=== PATIENT | male | born 1985 | race Caucasian/White ===

== ENCOUNTER 2016-05-09 12:15 | Emergency (ER) | payer OTHER ==
[~2016-05-09] VITALS: Ht 175.3 cm; Wt 86.3 kg
[~2016-05-09 12:15] MED LIST: AMOX875T PO; AMPH30CA3 PO; FEXO1TAB46 PO
[2016-05-09 12:18] VITALS: TEMP 37.1; Ht 175.3 cm; Wt 86.3 kg
[2016-05-09] MEDS ORDERED: IBUPROFEN 600 MG TAB PO STA (13:07)
[2016-05-09] MEDS ORDERED: ACETAMINOPHEN 325 MG TAB PO STA (13:07)
[2016-05-09] MEDS ORDERED: SODIUM CHLORIDE 0.9% 1000ML 1,000 ML IV STA (13:07)
[2016-05-09] MEDS ORDERED: ONDANSETRON INJ 2 MG/ML 2 ML VIAL IV STA (13:07)
[2016-05-09] MEDS ORDERED: OMEP20CA9 PO (13:38)
[2016-05-09 14:16] LABS: BUN/CREATININE RATIO 8.7 (10-20); CALCIUM 9.2 mg/dl (8.5-10.1); CREATININE 1.1 mg/dl (0.60-1.40); POTASSIUM 3.9 mmol/L (3.5-5.1)
[2016-05-09 14:52] LABS: BASO % 0.4 %; BASO ABS # 0.03 K/uL (0-0.2); COMPLETE YES; EOS % 0.1 %; HEMATOCRIT 42.9 % (42-52); IG% 0.1 %; LYMPH ABS # 0.91 K/uL (1.2-3.4); MEAN CELL VOLUME 84.8 fL (80-100); MEAN CORPUSCULAR HEMOGLOBIN 30.4 pg (25-34); MEAN CORPUSCULAR HGB CONC 35.9 g/dl (32-36); MEAN PLATELET VOLUME 11.8 fL (7.4-10.4); MONO % 11.1 %; NEUT % 77.3 %; PLATELET COUNT 110 K/uL (130-400); RED BLOOD COUNT 5.06 M/uL (4.7-6.1); WHITE BLOOD COUNT 8.27 K/uL (4.8-10.8)
[2016-05-09] MEDS ORDERED: ONDA4TAB10 SL (15:18)
[2016-05-09 15:28] VITALS: BP 118/71; PULSE 83; O2SAT 94
--- NOTE | 2016-05-09 17:21 | EMERGENCY ROOM VISIT NOTE ---
History Report prepared by Osmany: Craig Avelar Under the Supervision of: Dr. Anibal Walsh M.D. First contact with patient: 13:00 Chief Complaint: FLU LIKE SX Stated Complaint: FLU History of Present Illness The patient is a 31 year old male who presents to the Emergency Room with complaints of persistent flu-like symptoms that started 2 days ago. He complains of a sore throat, body aches, tiredness, difficulty breathing, and fevers. The patient also has a cough, which brings up green/yellow mucous. He did vomit this morning and had an episode of diarrhea yesterday. The patient denies leg swelling. His step-son was sick earlier this week with similar symptoms. The patient did not get a flu shot this season. He took Tylenol yesterday, but not today. Source of History: patient Onset: 2 days ago Position: other (global - flu-like symptoms) Timing: other (persistent) Associated Symptoms: + SOB, + cough, + diarrhea, + fatigue, + fevers, + sorethroat, + vomiting Note: Associated symptoms: Body aches. Denies leg swelling. Review of Systems See HPI for pertinent positives & negatives. A total of 10 systems reviewed and were otherwise negative. Past Medical & Surgical Medical Problems: (1) No chronic problems Family History No pertinent family history Social History Smoking Status: Never Smoker Marital Status: Housing Status: lives with family Occupation Status: employed Current/Historical Medications Scheduled Amphetamine-Dextroamphetamine 30MG (Adderall Xr 30MG), 30 MG PO DAILY Fexofenadine Hcl (Divya), 180 MG PO DAILY Omeprazole (Prilosec), 20 MG PO DAILY Ondasetron Odt (Zofran Odt), 4 MG SL Q6H Allergies Coded Allergies: No Known Allergies (Unverified , 10/19/14) Physical Exam Vital Signs Date Time Temp Pulse Resp B/P Pulse Ox O2 Delivery O2 Flow Rate FiO2 05/09/16 15:28 83 18 118/71 94 05/09/16 14:55 83 18 136/71 95 Room Air 05/09/16 13:39 84 16 147/82 100 Room Air 05/09/16 12:18 37.1 110 20 142/72 97 Room Air Physical Exam Constitutional: Vital signs reviewed. Eyes: Pupils are equal round reactive to light. Conjunctiva are noninjected. ENT: Erythema without exudate in oropharynx. Mucous membranes are moist. Neck supple without meningeal signs. Respiratory: Clear to auscultation bilaterally. Breath sounds are equal bilaterally. Cardiovascular: Regular rate and rhythm. No rubs or gallops. GI: Soft, nondistended and nontender. Bowel sounds are present. No organomegaly. Musculoskeletal: No peripheral edema. No lower extremity tenderness. Integumentary: No cyanosis. Neurological: The patient is awake and alert. No focal deficits. Psychiatric: Normal affect. Medical Decision & Procedures ER Provider Diagnostic Interpretation: Chest x-ray: reviewed by me: no acute cardiopulmonary process. Laboratory Results 05/09/16 14:42 Red Blood Count 5.06, Mean Corpuscular Volume 84.8, Mean Corpuscular Hemoglobin 30.4, Mean Corpuscular Hemoglobin Concent 35.9, Mean Platelet Volume 11.8, Neutrophils (%) (Auto) 77.3, Lymphocytes (%) (Auto) 11.0, Monocytes (%) (Auto) 11.1, Eosinophils (%) (Auto) 0.1, Basophils (%) (Auto) 0.4, Neutrophils # (Auto ) 6.39, Lymphocytes # (Auto) 0.91, Monocytes # (Auto) 0.92, Eosinophils # (Auto ) 0.01, Basophils # (Auto) 0.03 05/09/16 13:30 Test 05/09/16 12:58 05/09/16 13:30 05/09/16 14:42 Influenza Type A Antigen Neg for Influ A (NEG) Influenza Type B Antigen Neg for Influ B (NEG) Anion Gap 13.0 mmol/L (3-11) Est Creatinine Clear Calc Drug Dose 107.9 ml/min Estimated GFR () 104.6 Estimated GFR (Non- 90.2 BUN/Creatinine Ratio 8.7 (10-20) Calcium Level 9.2 mg/dl (8.5-10.1) Total Bilirubin 0.6 mg/dl (0.2-1) Direct Bilirubin 0.1 mg/dl (0-0.2) Aspartate Amino Transf (AST/SGOT) 18 U/L (15-37) Alanine Aminotransferase (ALT/SGPT) 34 U/L (12-78) Alkaline Phosphatase 104 U/L (45-117) Total Protein 7.3 gm/dl (6.4-8.2) Albumin 3.5 gm/dl (3.4-5.0) Monoscreen NEG (NEG) White Blood Count 8.27 K/uL (4.8-10.8) Red Blood Count 5.06 M/uL (4.7-6.1) Hemoglobin 15.4 g/dL (14.0-18.0) Hematocrit 42.9 % (42-52) Mean Corpuscular Volume 84.8 fL (80-100) Mean Corpuscular Hemoglobin 30.4 pg (25-34) Mean Corpuscular Hemoglobin Concent 35.9 g/dl (32-36) Platelet Count 110 K/uL (130-400) Mean Platelet Volume 11.8 fL (7.4-10.4) Neutrophils (%) (Auto) 77.3 % Lymphocytes (%) (Auto) 11.0 % Monocytes (%) (Auto) 11.1 % Eosinophils (%) (Auto) 0.1 % Basophils (%) (Auto) 0.4 % Neutrophils # (Auto) 6.39 K/uL (1.4-6.5) Lymphocytes # (Auto) 0.91 K/uL (1.2-3.4) Monocytes # (Auto) 0.92 K/uL (0.11-0.59) Eosinophils # (Auto) 0.01 K/uL (0-0.5) Basophils # (Auto) 0.03 K/uL (0-0.2) RDW Standard Deviation 40.3 fL (36.4-46.3) RDW Coefficient of Variation 13.0 % (11.5-14.5) Immature Granulocyte % (Auto) 0.1 % Immature Granulocyte # (Auto) 0.01 K/uL (0.00-0.02) Laboratory results as reviewed by me. Medications Administered Medications (Trade) Dose Ordered Sig/Griselda Route Start Time Stop Time Status Last Admin Dose Admin Sodium Chloride (Nss 1000ml) 1,000 ml @ 999 mls/hr Q1H1M STAT IV 05/09/16 13:07 05/09/16 14:07 DC 05/09/16 13:07 999 MLS/HR Ondansetron HCl (Zofran Inj) 4 mg NOW STAT IV 05/09/16 13:07 05/09/16 13:08 DC 05/09/16 13:37 4 MG Acetaminophen (Tylenol Tab) 650 mg NOW STAT PO 05/09/16 13:07 05/09/16 13:09 DC 05/09/16 13:38 650 MG Ibuprofen (Motrin Tab) 600 mg NOW STAT PO 05/09/16 13:07 05/09/16 13:09 DC 05/09/16 13:38 600 MG ED Course 1302: The patient was evaluated in room A3. A complete history and physical exam was performed. 1307: Ordered Motrin Tab 600 mg PO, Tylenol Tab 650 mg PO, Zofran Inj 4 mg IV, NSS 1000 ml @ 999 mls/hr IV. 1515: I reevaluated the patient and he is feeling better. I discussed the test results with him. The patient verbally expressed understanding and agreement of the treatment plan. The patient will be discharged. Medical Decision This is a 31-year-old male who presents with flulike symptoms. Differential diagnosis includes influenza, infectious mononucleosis, pneumonia, viral syndrome, dehydration, foodborne illness. I did perform a limited focused review of portions of the patient's old chart on the electronic medical record. The patient has had no recent pertinent visits to this hospital. I did evaluate the patient as noted above. IV access was established. I did treat the patient with normal saline IV and Zofran IV. He was also given Tylenol and Motrin. I did order a rapid strep test which was negative. Throat culture is pending. I did order and review the patient's chest x-ray as described above. There is no evidence of pneumonia. I did order and review the patient's blood work as noted in the electronic medical record. His white blood cell count is not elevated. He does have a mildly decreased platelet count. LFTs are unremarkable. Monospot is negative. Rapid flu testing is negative. I did reassess the patient. He states he is feeling better at this time. I did discuss the test results with him as well as the possibility for false negatives. I did recommend he follow closely with his doctor. He was discharged with a prescription for Zofran. Impression Primary Impression: Influenza-like symptoms Additional Impression: Thrombocytopenia Scribe Attestation The scribe's documentation has been prepared under my direct and personally reviewed by me in its entirety. I confirm that the note above accurately reflects all work, treatment, procedures, and medical decision making performed by me. Departure Information Dispostion Home / Self-Care Prescriptions Ondasetron Odt (ZOFRAN ODT) 4 Mg Tab 4 MG SL Q6H for Nausea, #10 TAB Prov: Anibal Walsh M.D. 05/09/16 Referrals Yvan Birch M.D. (PCP) Forms HOME CARE DOCUMENTATION FORM, IMPORTANT VISIT INFORMATION, Work Instructions Patient Instructions My [facility], Thrombocytopenia Additional Instructions You have been examined and treated today on an emergency basis only. This is not a substitute for, or an effort to provide, complete comprehensive medical care. It is impossible to recognize and treat all injuries or illnesses in a single emergency department visit. It is therefore important that you follow up closely with your physician. Call as soon as possible for an appointment. Return for worsening symptoms or if you develop abdominal pain, difficulty breathing or any other concerning symptoms. Problem Qualifiers
--- NOTE | 2016-05-09 18:17 | DIAGNOSTIC IMAGING REPORT ---
CHEST 2 VIEWS ROUTINE CLINICAL HISTORY: cough eval for pnea dyspnea COMPARISON STUDY: 03/09/2009 FINDINGS: The bones soft tissues and hemidiaphragms are normal. The cardiomediastinal silhouette is normal. The lungs are clear. The pulmonary vasculature is normal. IMPRESSION: Negative chest. Electronically signed by: Troy Alejo M.D. 05/09/2016 3:09 PM Dictated Date/Time: 05/09/2016 3:09 PM
== END 2016-05-09 15:30 | disposition home or self-care (01) ==
LOC: C.EDB 12:16 → C.EDA 15:30
DX: D69.6 Thrombocytopenia, unspecified (principal)